=== PATIENT | male | born 1980 | race Caucasian/White ===

== ENCOUNTER 2020-03-25 13:40 | Emergency (ER) | payer OTHER ==
[~2020-03-25] VITALS: Ht 185.4 cm; Wt 85.9 kg
[2020-03-25 13:40] VITALS: BP 126/64
--- NOTE | 2020-03-25 16:14 | REP ---
REASON: Trauma. FINDINGS: No acute fracture or destructive osseous lesion. Electronically Signed by Felix Arroyo DO 03/25/2020 04:16 P
== END 2020-03-25 14:46 | disposition home or self-care (01) ==
LOC: M ED 13:40
DX: S80.11XA Contusion of right lower leg, initial encounter (principal); F17.200 Nicotine dependence, unspecified, uncomplicated; W19.XXXA Unspecified fall, initial encounter; Y99.9 Unspecified external cause status; Y93.9 Activity, unspecified; Y92.9 Unspecified place or not applicable